=== PATIENT | female | born 1990 | race Caucasian/White ===

== ENCOUNTER 2016-11-05 17:29 | Observation (INO) | payer BC ==
[~2016-11-05] VITALS: Ht 162.6 cm; Wt 78.0 kg
--- NOTE | 2016-11-05 20:04 | Progress Note ---
Progress Note Date of Service Nov 05, 2016. Progress Note Outpatient Note 26 F P0000 at 36 weeks seen on L&D for 3 day onset of headaches and pain in abdomen. 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 Denies any leakage of fluid or any bleeding. She has had an uncomplicated to date. No significant medical or surgical history. Taking PNV only. NKA. Has uterine didelphys. No history of contractions. Exam: no edema of hands or feet noted. No pain in abdomen or RUQ with palpation. FHT Cat 1. GBS done. Cervix finger tip/50/-3/ vertex. Will hydrate with IV fluids and observe.
[2016-11-05] MEDS ORDERED: NURSING VERBAL MED ORDER ONE ×2 (20:30→23:00)
[2016-11-05] MEDS ORDERED: LACTATED RINGER'S 1000ML 1,000 ML IV SCH (20:45)
[2016-11-05] MEDS ORDERED: ACETAMINOPHEN 325 MG TAB PO PRN (21:45)
[2016-11-05] MEDS ORDERED: ACETAMINOPHEN 325 MG TAB ONE (21:50)
[2016-11-05] MEDS ORDERED: PATIENT'S ALLERGY INFO NEEDS ENTERED SCH (22:00)
[2016-11-05 22:55] LABS: URINE APPEARANCE CLEAR (CLEAR); URINE BILIRUBIN NEG (NEG); URINE COLOR YELLOW; URINE NITRITE NEG (NEG); URINE PH 6.5 (4.5-7.5); URINE SPECIFIC GRAVITY 1.005 (1.000-1.030); UROBILINOGEN NEG (NEG); ZZUR CULT IF INDIC CLEAN CATCH NO
[2016-11-05 23:01] LABS: MANUAL MICROSCOPIC REQUIRED? NO; REVIEW REQ? NO
[2016-11-05] MEDS ORDERED: BUTALBITAL/ACETAMIN/CAFFEINE TAB PO STA (23:37)
[2016-11-06 04:42] VITALS: Ht 162.6 cm; Wt 78.0 kg
[2016-11-06] MEDS ORDERED: PRENTAB26 PO (05:08)
[2016-11-06] MEDS ORDERED: IV FLUIDS COMPLETED PRN (05:45)
--- NOTE | 2016-11-06 06:43 | Progress Note ---
Progress Note Date of Service Nov 06, 2016. Progress Note Cervix is unchanged at /-3 irregular contractions FHT Cat 1 will d/c home not in labor
== END 2016-11-06 06:59 | disposition home or self-care (01) ==
LOC: C.OPB 17:29 → C.LD 17:29 → C.OPB 11-06 04:54 → C.LD 11-06 04:54
PROVIDERS: ADMIT Obstetrics & Gynecology; ATTEND Obstetrics & Gynecology
DX: O47.03 False labor before 37 completed weeks of gestation, third trimester (principal); R51 Headache